=== PATIENT | male | born 1995 | race Caucasian/White ===

== ENCOUNTER 2020-01-07 21:06 | Emergency (ER) | payer MEDICAID, OTHER ==
[~2020-01-07] VITALS: Ht 188 cm; Wt 97.0 kg
[2020-01-07 21:24] VITALS: BP 143/91
[2020-01-07] MEDS ORDERED: TETRACAINE 0.5% OPHTH DROPS 4ML LEFTEYE ONE (21:45)
[2020-01-07] MEDS ORDERED: BALANCED SALT IRRIG SOLN 15ML IR ONE (21:45)
[2020-01-07] MEDS ORDERED: FLUORESCEIN SODIUM 1MG/STRIP LEFTEYE ONE (21:45)
[2020-01-07] MEDS ORDERED: IBUPROFEN 600MG TABLET PO STA (21:55)
== END 2020-01-07 22:10 | disposition home or self-care (01) ==
LOC: ER 21:06
DX: S01.81XA Laceration without foreign body of other part of head, initial encounter (principal); Y08.89XA Assault by other specified means, initial encounter; Y93.89 Activity, other specified; Y92.89 Other specified places as the place of occurrence of the external cause; Y99.8 Other external cause status
CPT/HCPCS: 93005; 99283